=== PATIENT | male | born 1965 | race Caucasian/White ===

== ENCOUNTER 2016-10-22 15:24 | Emergency (ER) | payer BC ==
[~2016-10-22] VITALS: Ht 182.9 cm; Wt 93.0 kg
[2016-10-22 15:33] VITALS: BP 150/91
[2016-10-22] MEDS ORDERED: PLAQUENIL200 MG ORAL (15:42)
[2016-10-22] MEDS ORDERED: PAMELOR10 MG ORAL (15:42)
[2016-10-22] MEDS ORDERED: IMITREX25 MG PO (15:42)
[2016-10-22] MEDS ORDERED: SIMVASTATIN10 MG ORAL (15:42)
[2016-10-22] MEDS ORDERED: LEXAPRO5 MG ORAL (15:42)
[2016-10-22] MEDS ORDERED: METHOTREXATE2.5 MG PO (15:42)
[2016-10-22] MEDS ORDERED: LOSARTAN POTASS25 MG ORAL (15:42)
[2016-10-22] MEDS ORDERED: INDERAL LA60 MG ORAL (15:42)
[2016-10-22 16:30] LABS: EOSINOPHILS % (AUTO) 0.5 % (0.0-3.0); LYMPHOCYTES % (AUTO) 11.5 % (20.0-45.0); MEAN CORPUSCULAR HEMOGLOBIN 34.5 PG (27.0-31.0); MEAN CORPUSCULAR HGB CONC 37.2 G/DL (32.0-36.0); MEAN CORPUSCULAR VOLUME 93 FL (80-99); MEAN PLATELET VOLUME 7.5 FL (6.5-10.1); MONOCYTES % (AUTO) 8.1 % (1.0-10.0); PLATELET COUNT 180 K/UL (150-450); RED CELL DISTRIBUTION WIDTH 12.4 % (11.6-14.8)
[2016-10-22 16:37] LABS: APPEARANCE,URINE CLEAR; KETONES,URINE NEGATIVE (NEGATIVE); LEUKOCYTE ESTERASE ,URINE NEGATIVE (NEGATIVE); NITRITE,URINE NEGATIVE (NEGATIVE); PH,URINE 6.5 (4.5-8.0); PROTEIN,URINE NEGATIVE (NEGATIVE); UROBILINOGEN,URINE NORMAL MG/DL (0.0-1.0)
[2016-10-22 16:46] LABS: PROTHROMBIN TIME 10.7 SEC (9.30-11.50)
[2016-10-22 16:55] LABS: BACTERIA,URINE FEW /HPF; RBC,URINE 0-2 /HPF (0 - 0); WBC,URINE 0-2 /HPF (0 - 0)
[2016-10-22 17:05] LABS: CALCIUM 9.8 mg/dL (8.6-10.2); CREATININE 1.8 mg/dL (0.7-1.2); GLOMERULAR FILTRATION RATE 39.8 mL/min (>60); POTASSIUM 4.6 mEQ/L (3.4-4.9); TOTAL PROTEIN 6.5 g/dL (6.6-8.7)
[2016-10-22 17:25] LABS: BILIRUBIN,DIRECT 0.2 mg/dL (0.1-0.3)
[2016-10-22] MEDS ORDERED: Morphine Sulfate 4mg/ml Inj IVP ONE (19:00)
[2016-10-22 19:29] VITALS: BP 144/89
[2016-10-22] MEDS ORDERED: NORCO 5-325 TA1 EAC1 ORAL (20:28)
[2016-10-22 20:38] VITALS: BP 138/87
--- NOTE | 2016-10-23 10:30 | Diagnostic Imaging Report ---
Indication: Abdominal pain Technique: Continuous helical transaxial imaging of the abdomen and pelvis was obtained from the lung bases to the pubic symphysis. No intravenous contrast was administered. Coronal 2-D reformats were also obtained. Total Dose length Product (DLP): [address] Dose Index Volume (CTDIvol): 18.4, 0.5 mGy Comparison: none Findings: There is a moderate degree of right perinephric stranding and hydronephrosis secondary to a mid ureteral calculus measuring approximately 6 mm. Stranding extends into the anterior pararenal space down to the right hemipelvis. There are multiple nonobstructive stones within the left kidney measuring in the upper to 7-8 mm. There is cortical volume loss indicative of scarring in the left kidney especially in the lateral part of the kidney. Tiny gallstone noted. Solid organs in the anterior wall. Lung bases are clear. Small hiatal hernia is present. No evidence of bowel obstruction, free fluid or free air. Urinary bladder wall shows mild thickening. Impression: Evidence of acute right ureteral obstruction due to a 6 mm mid ureteral stone and hydronephrosis. Moderate perinephric and anterior pararenal inflammation. Multiple nonobstructive stones in the left kidney. Scarring of the left kidney noted. Normal appendix Thickening of the urinary bladder wall. Query cystitis. Tiny gallstone Small hiatal hernia [facility] has communicated the preliminary results to the Emergency Department. Their findings are largely concordant with this report. The CT scanner at [facility] is accredited by the [employer] and the scans are performed using dose optimization techniques as appropriate to a performed exam including Automatic Exposure control.
--- NOTE | 2016-10-25 12:21 | Emergency Room Report ---
History of Present Illness General Chief Complaint: Lower Back Pain or Injury Source: Patient Present Illness HPI The patient is a 51 yo M presenting for R back and R abdomen pain x 1 day. He states that this is a 6/10 sharp and intermittent pain which radiates from the right lower back to the right abdomen. No known provoking relieving factors. He also admits to feeling of nausea but denies vomiting. He states that he has never had a kidney stone in the past but this feels like it. He denies any other symptoms including fever, chills, dysuria, hematuria, diarrhea, constipation, CP, SOB Allergies: Coded Allergies: AMPICILLIN (Verified Allergy, Intermediate, 10/22/16) PENICILLINS (Verified Allergy, Intermediate, 10/22/16) Patient History Past Medical History: see triage record, HTN Pertinent Family History: none Nursing Documentation-PMH Hx Hypertension: Yes Review of Systems All Other Systems: negative except mentioned in HPI Physical Exam Vital Signs Date Time Temp Pulse Resp B/P (MAP) Pulse Ox O2 Delivery O2 Flow Rate FiO2 10/22/16 15:33 97.9 83 19 150/91 97 Room Air Sp02 EP Interpretation: reviewed, normal General Appearance: no apparent distress, alert, GCS 15, non-toxic Head: normocephalic, atraumatic Eyes: bilateral eye normal inspection, bilateral eye PERRL ENT: hearing grossly normal, normal pharynx, no angioedema, normal voice Neck: full range of motion, supple/symm/no masses Respiratory: chest non-tender, lungs clear, normal breath sounds, speaking full sentences Cardiovascular #1: regular rate, rhythm, no edema Gastrointestinal: normal bowel sounds, soft, non-distended, no guarding, no rebound, tenderness - TTP over the RUQ Rectal: deferred Genitourinary: CVA tenderness (R) Musculoskeletal: back normal, gait/station normal, normal range of motion, non- tender Neurologic: alert, oriented x3, responsive, motor strength/tone normal, sensory intact, speech normal Psychiatric: judgement/insight normal, memory normal, mood/affect normal, no suicidal/homicidal ideation Skin: normal color, no rash, warm/dry, well hydrated Lymphatic: no adenopathy Medical Decision Making PA Attestation Dr. Culver is my supervising physician. Patient management was discussed with my supervising physician Diagnostic Impression: Primary Impression: Likely Ureter Rupture Additional Impressions: Kidney stone Hydronephrosis Qualified Codes: N13.30 - Unspecified hydronephrosis Renal failure Qualified Codes: N17.9 - Acute kidney failure, unspecified ER Course The patient is a 51 yo M presenting for R back and R abdomen pain x 1 day DDx considered but not limited to: pyelonephritis, renal lithiasis, LENKA, hepatitis, appendicitis, gastroenteritis, among others PE: Afebrile. NAD There is R sided CVA tenderness with RUQ tenderness. Normal BS. Non distended. Labs show leukocytosis with L shift, renal failure. CT: Evidence of acute right ureteral obstruction due to a 6 mm mid ureteral stone and hydronephrosis. Moderate perinephric and anterior pararenal inflammation. The patient is given IV hydration, IV abx, and pain medications and feels better. He initially agrees to be admitted and then consulted a friend who is a urologist who stated he will see the patient in the morning. The patient states he wants to leave AMA and understands the risks associated with this including permanent organ damage and . Labs Test 10/22/16 16:12 10/22/16 16:19 Urine Color Pale yellow Urine Appearance Clear Urine pH 6.5 (4.5-8.0) Urine Specific [place] 1.005 (1.005-1.035) Urine Protein Negative (NEGATIVE) Urine Glucose (UA) Negative (NEGATIVE) Urine Ketones Negative (NEGATIVE) Urine Occult Blood 1+ (NEGATIVE) Urine Nitrite Negative (NEGATIVE) Urine Bilirubin Negative (NEGATIVE) Urine Urobilinogen Normal MG/DL (0.0-1.0) Urine Leukocyte Esterase Negative (NEGATIVE) Urine RBC 0-2 /HPF (0 - 0) Urine WBC 0-2 /HPF (0 - 0) Urine Squamous Epithelial Cells None /LPF (NONE/OCC) Urine Bacteria Few /HPF (NONE) White Blood Count 13.0 K/UL (4.8-10.8) Red Blood Count 4.50 M/UL (4.70-6.10) Hemoglobin 15.6 G/DL (14.2-18.0) Hematocrit 41.8 % (42.0-52.0) Mean Corpuscular Volume 93 FL (80-99) Mean Corpuscular Hemoglobin 34.5 PG (27.0-31.0) Mean Corpuscular Hemoglobin Concent 37.2 G/DL (32.0-36.0) Red Cell Distribution Width 12.4 % (11.6-14.8) Platelet Count 180 K/UL (150-450) Mean Platelet Volume 7.5 FL (6.5-10.1) Neutrophils (%) (Auto) 79.0 % (45.0-75.0) Lymphocytes (%) (Auto) 11.5 % (20.0-45.0) Monocytes (%) (Auto) 8.1 % (1.0-10.0) Eosinophils (%) (Auto) 0.5 % (0.0-3.0) Basophils (%) (Auto) 1.0 % (0.0-2.0) Prothrombin Time 10.7 SEC (9.30-11.50) Prothromb Time International Ratio 1.0 (0.9-1.1) Activated Partial Thromboplast Time 25 SEC (23-33) Sodium Level 135 mEQ/L (135-145) Potassium Level 4.6 mEQ/L (3.4-4.9) Chloride Level 97 mEQ/L (98-107) Carbon Dioxide Level 26 mEQ/L (20-30) Anion Gap 12 (5-15) Blood Urea Nitrogen 20 mg/dL (7-23) Creatinine 1.8 mg/dL (0.7-1.2) Estimat Glomerular Filtration Rate 39.8 mL/min (>60) Glucose Level 113 mg/dL (74-106) Calcium Level 9.8 mg/dL (8.6-10.2) Total Bilirubin 1.1 mg/dL (0.0-1.2) Direct Bilirubin 0.2 mg/dL (0.1-0.3) Aspartate Amino Transf (AST/SGOT) 44 U/L (5-40) Alanine Aminotransferase (ALT/SGPT) 52 U/L (3-41) Alkaline Phosphatase 56 U/L (40-129) Total Protein 6.5 g/dL (6.6-8.7) Albumin 4.4 g/dL (3.5-5.2) Globulin 2.1 g/dL Albumin/Globulin Ratio 2.0 (1.0-2.7) Lipase 28 U/L (< 60) Lab Results Impression CBC shows mild leukocytosis with L shift. CMP shows renal failure with Cr of 1.8 Urine has 1+ occult blood with 0-[address]/MRI/US Diagnostic Results CT/MRI/US Diagnostic Results : Imaging Test Ordered: CT abd/pelvis Impression Evidence of acute right ureteral obstruction due to a 6 mm mid ureteral stone and hydronephrosis. Moderate perinephric and anterior pararenal inflammation. Multiple nonobstructive stones in the left kidney. Scarring of the left kidney noted. Normal appendix Thickening of the urinary bladder wall. Query cystitis. Tiny gallstone Small hiatal hernia Last Vital Signs Date Time Temp Pulse Resp B/P (MAP) Pulse Ox O2 Delivery O2 Flow Rate FiO2 10/22/16 20:38 97.8 72 17 138/87 99 Room Air Status: improved Disposition: AGAINST MEDICAL ADVICE Condition: Stable Scripts Hydrocodone Bit/Acetaminophen 5-325* ([place] 5-325 TABLET*) 1 Each Tablet 1 TAB ORAL Q6HR Y for For Pain, #10 TAB Prov: KOFI KU 10/22/16 Patient Instructions: Hydronephrosis, Kidney Stones, Renal Colic Additional Instructions: You have chosen to leave AGAINST MEDICAL ADVICE. Have explained the risks of leaving including risk of organ damage, failure, and even . You stated you will followup with manager r d as soon as possible. Return to emergency Department if you change your mind or for any reason including fever, continuing or worsening pain, blood in urine KOFI KU Oct 25, 2016 12:21
== END 2016-10-22 20:38 | disposition left against medical advice (07) ==
LOC: EMR 16:03 → EDBEDREQ 20:17 → CANBEDREQ 20:18 → EMR 20:38
DX: N20.0 Calculus of kidney (principal); N13.30 Unspecified hydronephrosis; N17.9 Acute kidney failure, unspecified; I10 Essential (primary) hypertension; Z88.0 Allergy status to penicillin; M54.9 Dorsalgia, unspecified; D72.829 Elevated white blood cell count, unspecified; K44.9 Diaphragmatic hernia without obstruction or gangrene; K80.80 Other cholelithiasis without obstruction
CPT/HCPCS: 36415; 74176; 80053; 81003; 82248; 83690; 85025; 85610; 85730; 96361; 96374; 96375; 99284; J0696; J2270; J2405

== ENCOUNTER 2016-10-22 21:18 | Inpatient (IN) | payer BC ==
[~2016-10-22] VITALS: Ht 182.9 cm; Wt 93.0 kg
[~2016-10-22 21:18] MED LIST: IMITREX25 MG PO; INDERAL LA60 MG ORAL; LEXAPRO5 MG ORAL; LOSARTAN POTASS25 MG ORAL; METHOTREXATE2.5 MG PO; NORCO 5-325 TA1 EAC1 ORAL; PAMELOR10 MG ORAL; PLAQUENIL200 MG ORAL; SIMVASTATIN10 MG ORAL
[2016-10-22 21:30] VITALS: BP 145/90
[2016-10-22] MEDS ORDERED: cefTRIAXone 1 GM in NS 55 ML IVPB ONE (22:00)
--- NOTE | 2016-10-22 22:17 | Emergency Room Report ---
History of Present Illness General Chief Complaint: Abdominal Pain Source: Patient Present Illness HPI Is a 51-year-old male with no past medical history. Patient was here earlier for flank pain abdominal pain. He had acute renal failure with creatinine 1.8. CT scan showed a 5-6 mm stone in the right proximal ureter with mild obstructive changes. There was fluid adjacent to the right kidney and duodenum. This could be from a forniceal rupture. Patient signout AMA. He said that he has a urologist friend to see him in the morning. He was unable to contact that person so he came here. Denies any nausea vomiting. Pain is well-controlled. No other complaint. Allergies: Coded Allergies: AMPICILLIN (Verified Allergy, Intermediate, 10/22/16) PENICILLINS (Verified Allergy, Intermediate, 10/22/16) Patient History Past Medical History: see triage record, old chart reviewed Past Surgical History: other Pertinent Family History: none Social History: Denies: smoking Immunizations: other Reviewed Nursing Documentation: PMH: Agreed, PSxH: Agreed Nursing Documentation-PMH Hx Hypertension: Yes Review of Systems Eye: Denies: eye pain, blurred vision ENT: Denies: ear pain, nose congestion, throat swelling Respiratory: Denies: cough, shortness of breath Cardiovascular: Denies: chest pain, palpitations Gastrointestinal: Denies: abdominal pain, diarrhea, nausea, vomiting Genitourinary: Reports: other - Flank pain Musculoskeletal: Denies: back pain, joint pain Skin: Denies: rash Neurological: Denies: headache, numbness Endocrine: Denies: increased thirst, increased urine Hematologic/Lymphatic: Denies: easy bruising All Other Systems: negative except mentioned in HPI Physical Exam Vital Signs Date Time Temp Pulse Resp B/P (MAP) Pulse Ox O2 Delivery O2 Flow Rate FiO2 10/22/16 21:22 97.9 89 18 145/90 98 Room Air itals normal Sp02 EP Interpretation: reviewed, normal General Appearance: well appearing, no apparent distress, alert Head: normocephalic, atraumatic Eyes: bilateral eye PERRL, bilateral eye EOMI ENT: hearing grossly normal, normal pharynx Neck: full range of motion, supple, no meningismus Respiratory: chest non-tender, lungs clear, normal breath sounds Cardiovascular #1: regular rate, rhythm, no murmur Gastrointestinal: normal bowel sounds, non tender, no mass, no organomegaly, no bruit, non-distended Musculoskeletal: back normal, gait/station normal, normal range of motion Psychiatric: mood/affect normal Skin: warm/dry Medical Decision Making Diagnostic Impression: Primary Impression: Ureteral stone with hydronephrosis Additional Impression: Acute kidney failure Qualified Codes: N17.9 - Acute kidney failure, unspecified ER Course Patient with an obstructed kidney stone. Because of the possible rupture, will admit for IV antibiotics. Patient went to stay in now. I contacted Dr. Braun for admission. Apparently, Dr. Cary spoke with urologist already. Patient be seen in the morning by urologist. Last Vital Signs Date Time Temp Pulse Resp B/P (MAP) Pulse Ox O2 Delivery O2 Flow Rate FiO2 10/22/16 21:22 97.9 89 18 145/90 98 Room Air Status: improved Disposition: ADMITTED INPATIENT Condition: Serious SAUL BOTELLO M.D. Oct 22, 2016 22:17
[2016-10-22] MEDS ORDERED: Miralax 17gm pkt ORAL PRN (22:30)
[2016-10-22] MEDS ORDERED: Nitroglycerin Subl 0.4mg tab (Bottle Of 25) SL PRN (22:30)
[2016-10-22] MEDS ORDERED: Mylanta II UD 30ml ORAL PRN (22:30)
[2016-10-22 23:30] VITALS: BP 133/81
[2016-10-23] VITALS: BP 144/79
[2016-10-23] MEDS: Morphine Sulfate 2mg/ml Inj IVP PRN ×2 (00:42→08:38)
[2016-10-23] MEDS: D5 1/2NS 1,000 ML IV SCH ×4 (00:42→18:16)
[2016-10-23] MEDS: Aztreonam Inj 1 GM in NS 50 ML IVPB SCH ×4 (01:20→23:36)
[2016-10-23 04:00] VITALS: BP 122/72
[2016-10-23 05:12] LABS: APPEARANCE,URINE CLEAR; KETONES,URINE NEGATIVE (NEGATIVE); LEUKOCYTE ESTERASE ,URINE NEGATIVE (NEGATIVE); NITRITE,URINE NEGATIVE (NEGATIVE); PH,URINE 7 (4.5-8.0); PROTEIN,URINE NEGATIVE (NEGATIVE); UROBILINOGEN,URINE NORMAL MG/DL (0.0-1.0)
[2016-10-23 05:45] LABS: RBC,URINE 0 /HPF (0 - 0); WBC,URINE 0 /HPF (0 - 0)
[2016-10-23 06:32] LABS: BASOPHILS % (AUTO) 0.6 % (0.0-2.0); EOSINOPHILS % (AUTO) 0.6 % (0.0-3.0); LYMPHOCYTES % (AUTO) 8.8 % (20.0-45.0); MEAN CORPUSCULAR HEMOGLOBIN 34.5 PG (27.0-31.0); MEAN CORPUSCULAR HGB CONC 35.5 G/DL (32.0-36.0); MEAN CORPUSCULAR VOLUME 97 FL (80-99); MEAN PLATELET VOLUME 7.8 FL (6.5-10.1); MONOCYTES % (AUTO) 9.7 % (1.0-10.0); NEUTROPHILS % (AUTO) 80.3 % (45.0-75.0); PLATELET COUNT 132 K/UL (150-450); RED BLOOD COUNT 3.92 M/UL (4.70-6.10); RED CELL DISTRIBUTION WIDTH 12.5 % (11.6-14.8); WHITE BLOOD COUNT 10.9 K/UL (4.8-10.8)
[2016-10-23 06:49] LABS: ALBUMIN/GLOBULIN RATIO 1.9 (1.0-2.7); CALCIUM 8.7 mg/dL (8.6-10.2); CREATININE 1.8 mg/dL (0.7-1.2); GLOMERULAR FILTRATION RATE 39.8 mL/min (>60); POTASSIUM 4.4 mEQ/L (3.4-4.9); TOTAL PROTEIN 5.6 g/dL (6.6-8.7)
[2016-10-23 08:19] VITALS: BP 128/74
[2016-10-23] MEDS: Heparin 5000 units/ml inj SUBQ SCH ×2 (08:38→21:00)
[2016-10-23] MEDS ORDERED: D5 1/2NS 1000ml IV ONE (10:04)
[2016-10-23] MEDS ORDERED: Tubing IV Secondary IV ONE (10:04)
[2016-10-23 12:04] VITALS: BP 122/72
[2016-10-23] MEDS: Morphine Sulfate 4mg/ml Inj IV PRN ×2 (13:05→18:17)
[2016-10-23 16:08] VITALS: BP 117/67
--- NOTE | 2016-10-23 16:19 | History and Physical ---
History of Present Illness General Date patient seen: Oct 23, 2016 Reason for Hospitalization: Abdominal Pain Present Illness HPI 51 year old male with hx of migraine presented to [facility] with CC of flank pain. He was diagnosed to have urethral stone and admitted for further evaluation. No hx of previous nephrolithiasis Allergies: Coded Allergies: AMPICILLIN (Verified Allergy, Intermediate, 10/22/16) PENICILLINS (Verified Allergy, Intermediate, 10/22/16) Medication History Scheduled Escitalopram Oxalate (Lexapro), 5 MG ORAL DAILY, (Reported) Hydroxychloroquine Sulfate* (Plaquenil*), 200 MG ORAL DAILY, (Reported) Losartan Potassium* (Losartan Potassium*), 25 MG ORAL DAILY, (Reported) Methotrexate Sodium* (Methotrexate*), 2.5 MG PO ONCE A WEEK, (Reported) Nortriptyline Hcl* (Pamelor*), 10 MG ORAL DAILY, (Reported) Propranolol Hcl* (Inderal La*), 60 MG ORAL QPM, (Reported) Simvastatin (Zocor), 10 MG ORAL BEDTIME, (Reported) Scheduled PRN Hydrocodone Bit/Acetaminophen 5-325* ([place] 5-325 Tablet*), 1 TAB ORAL Q6HR PRN for For Pain Sumatriptan Succinate (Imitrex), 25 MG PO for For Pain, (Reported) Patient History Healthcare decision maker Resuscitation status Full Code Advanced Directive on File Past Medical/Surgical History Past Medical/Surgical History: (1) Migraine Review of Systems All Other Systems: negative except mentioned in HPI Physical Exam General Appearance: WD/WN Lines, tubes and drains: peripheral HEENT: normocephalic, atraumatic Neck: non-tender Respiratory/Chest: chest wall non-tender, lungs clear Breasts: no masses Cardiovascular/Chest: normal peripheral pulses Abdomen: normal bowel sounds, non tender Genitourinary/Rectal: normal rectal exam, normal prostate exam Extremities: non-tender Skin Exam: normal pigmentation 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 normal Last 24 Hour Vital Signs Date Time Temp Pulse Resp B/P (MAP) Pulse Ox O2 Delivery O2 Flow Rate FiO2 10/23/16 13:35 97.8 10/23/16 12:04 97.8 81 20 122/72 96 Room Air 10/23/16 09:08 98.2 10/23/16 08:19 98.2 77 20 128/74 96 Room Air 10/23/16 04:00 97.9 75 18 122/72 99 Room Air 10/23/16 00:00 96.8 80 18 144/79 97 Room Air 10/22/16 23:30 97.9 83 15 133/81 98 Room Air 10/22/16 23:30 97.9 83 15 133/81 98 Room Air 10/22/16 21:30 97.9 89 18 145/90 98 Room Air 10/22/16 21:22 97.9 89 18 145/90 98 Room Air Intake and Output 10/23/16 10/24/16 19:00 07:00 Intake Total 360 ml Output Total 400 ml Balance -40 ml Intake Oral 360 ml Output Urine Total 400 ml Laboratory Tests Test 10/23/16 03:30 10/23/16 05:50 Urine Color Yellow Urine Appearance Clear Urine pH 7 (4.5-8.0) Urine Specific [place] 1.010 (1.005-1.035) Urine Protein Negative (NEGATIVE) Urine Glucose (UA) Negative (NEGATIVE) Urine Ketones Negative (NEGATIVE) Urine Occult Blood Negative (NEGATIVE) Urine Nitrite Negative (NEGATIVE) Urine Bilirubin Negative (NEGATIVE) Urine Urobilinogen Normal MG/DL (0.0-1.0) Urine Leukocyte Esterase Negative (NEGATIVE) Urine RBC 0 /HPF (0 - 0) Urine WBC 0 /HPF (0 - 0) Urine Squamous Epithelial Cells None /LPF (NONE/OCC) Urine Bacteria None /HPF (NONE) White Blood Count 10.9 K/UL (4.8-10.8) H Red Blood Count 3.92 M/UL (4.70-6.10) L Hemoglobin 13.5 G/DL (14.2-18.0) L Hematocrit 38.1 % (42.0-52.0) L Mean Corpuscular Volume 97 FL (80-99) Mean Corpuscular Hemoglobin 34.5 PG (27.0-31.0) H Mean Corpuscular Hemoglobin Concent 35.5 G/DL (32.0-36.0) Red Cell Distribution Width 12.5 % (11.6-14.8) Platelet Count 132 K/UL (150-450) L Mean Platelet Volume 7.8 FL (6.5-10.1) Neutrophils (%) (Auto) 80.3 % (45.0-75.0) H Lymphocytes (%) (Auto) 8.8 % (20.0-45.0) L Monocytes (%) (Auto) 9.7 % (1.0-10.0) Eosinophils (%) (Auto) 0.6 % (0.0-3.0) Basophils (%) (Auto) 0.6 % (0.0-2.0) Activated Partial Thromboplast Time 28 SEC (23-33) Sodium Level 140 mEQ/L (135-145) Potassium Level 4.4 mEQ/L (3.4-4.9) Chloride Level 103 mEQ/L (98-107) Carbon Dioxide Level 27 mEQ/L (20-30) Anion Gap 10 (5-15) Blood Urea Nitrogen 19 mg/dL (7-23) Creatinine 1.8 mg/dL (0.7-1.2) H Estimat Glomerular Filtration Rate 39.8 mL/min (>60) Glucose Level 121 mg/dL (74-106) H Calcium Level 8.7 mg/dL (8.6-10.2) Total Bilirubin 0.9 mg/dL (0.0-1.2) Aspartate Amino Transf (AST/SGOT) 30 U/L (5-40) Alanine Aminotransferase (ALT/SGPT) 40 U/L (3-41) Alkaline Phosphatase 48 U/L (40-129) Total Protein 5.6 g/dL (6.6-8.7) L Albumin 3.7 g/dL (3.5-5.2) Globulin 1.9 g/dL Albumin/Globulin Ratio 1.9 (1.0-2.7) Amylase Level 110 U/L (10-110) Lipase 91 U/L (< 60) H Height (Feet): 6 Height (Inches): 0.00 Weight (Pounds): 205 Medications Current Medications Medications (Trade) Dose Ordered Sig/Vianney Route PRN Reason Start Time Stop Time Status Last Admin Dose Admin Acetaminophen (Tylenol) 650 mg Q4H PRN ORAL fever 10/22/16 22:30 11/21/16 22:29 Al Hydroxide/Mg Hydroxide (Mylanta II) 30 ml Q6H PRN ORAL dyspepsia 10/22/16 22:30 11/21/16 22:29 Aztreonam 1 gm/ Sodium Chloride 50 ml @ 100 mls/hr Q8H IVPB 10/23/16 00:00 10/30/16 00:00 10/23/16 16:00 Dextrose (Dextrose 50%) STAT PRN IV Hypoglycemia 10/22/16 22:30 11/21/16 22:29 Dextrose/Sodium Chloride 1,000 ml @ 75 mls/hr [id number] IV 10/23/16 00:00 11/22/16 00:00 10/23/16 16:01 Diphenhydramine HCl (Benadryl) 25 mg Q6H PRN ORAL Itching/Pruritis 10/22/16 22:30 11/21/16 22:29 Heparin Sodium (Porcine) (Heparin 5000 units/ml) 5,000 units EVERY 12 HOURS SUBQ 10/23/16 09:00 11/22/16 08:59 Morphine Sulfate (Morphine Sulfate) 2 mg Q4H PRN IVP severe Pain (Pain Scale 4-6) 10/22/16 22:30 10/29/16 22:29 10/23/16 08:38 Morphine Sulfate (Morphine Sulfate) 4 mg Q2H PRN IV For Pain (7-10) 10/22/16 22:30 10/29/16 22:29 10/23/16 13:05 Nitroglycerin (Ntg) 0.4 mg Q5M X 3 DOSES PRN SL Prn Chest Pain 10/22/16 22:30 11/21/16 22:29 Ondansetron HCl (Zofran) 4 mg Q6H PRN IVP Nausea & Vomiting 10/22/16 22:30 11/21/16 22:29 10/23/16 12:59 Polyethylene Glycol (Miralax) 17 gm HSPRN PRN ORAL Constipation 10/22/16 22:30 11/21/16 22:29 Temazepam (Restoril) 15 mg HSPRN PRN ORAL Insomnia 10/22/16 22:30 10/29/16 22:29 Assessment/Plan Problem List: (1) Ureteral stone with hydronephrosis ICD Codes: N13.2 - Hydronephrosis with renal and ureteral calculous obstruction SNOMED: 556153386 (2) Acute kidney failure ICD Codes: N17.9 - Acute kidney failure, unspecified SNOMED: 75992703 Qualifiers: Qualified Codes: N17.9 - Acute kidney failure, unspecified (3) Migraine ICD Codes: G43.909 - Migraine, unspecified, not intractable, without status migrainosus SNOMED: 78224944 Assessment/Plan iv fluids check electrolytes Urology evaluation symptomatic treatment. HUNTER CASTRO Oct 23, 2016 16:19
[2016-10-23 19:52] VITALS: BP 116/72
[2016-10-23 23:22] LABS: APPEARANCE,URINE CLEAR; KETONES,URINE NEGATIVE (NEGATIVE); LEUKOCYTE ESTERASE ,URINE NEGATIVE (NEGATIVE); NITRITE,URINE NEGATIVE (NEGATIVE); PH,URINE 6 (4.5-8.0); PROTEIN,URINE NEGATIVE (NEGATIVE); UROBILINOGEN,URINE NORMAL MG/DL (0.0-1.0)
[2016-10-24] VITALS (13 sets, daily range): BP systolic 115–148; BP diastolic 63–86
[2016-10-24] MEDS: D5 1/2NS 1,000 ML IV SCH ×2 (01:27→08:45)
[2016-10-24] MEDS: Morphine Sulfate 4mg/ml Inj IV PRN ×2 (01:27→04:43)
--- NOTE | 2016-10-24 02:32 | Consultation ---
DATE OF CONSULTATION: 10/23/2016 PREOPERATIVE DIAGNOSIS: Right ureteral stone. Indication: The patient was referred to me by Dr. Braun. He is a 51-year-old male with history of renal stones, presented to the emergency room last night and CT scan revealed proximal ureteral stone. The patient was admitted for observation and started on IV hydration. ALLERGIES: To ampicillin and penicillin. Past Medical History: He has history of hypertension and hypercholesterolemia. Medications: He is on medications, hydroxychloroquine, losartan, methotrexate, nortriptyline, propranolol, and simvastatin. Review Of Symptoms: He is complaining of mild nausea and very mild flank tenderness. No history of hematuria or melena. PHYSICAL EXAMINATION: GENERAL: He is afebrile. VITAL SIGNS: Stable. LUNGS: Clear to auscultation. CARDIOVASCULAR: Regular rate and rhythm. Abdomen: Soft, mildly tender in the right upper quadrant. Positive CVA tenderness on the right. EXTREMITIES: Nontender. SKIN: Exam is normal. NEUROLOGIC: Intact. Laboratory And Diagnostic Data: Showed no white cells and no red cells in the urine. White blood count is 10.9, hematocrit is 38.1. Creatinine is 1.8. CT scan was done yesterday showing a 5 mm proximal ureteral stone with mild hydronephrosis. Assessment And Plan: The patient has right renal colic with right ureteral stone. We gave him 12 hours to pass the stone, but so far, he is not improving and we scheduled him for procedure retrograde intrarenal surgery with possible ESWL tomorrow morning. He will be NPO post midnight with intravenous fluids. I will discuss this case with Dr. Braun. Antwon Harris M.D. DR: Bill JOB#: [id number] CC:
[2016-10-24] MEDS: Nortriptyline 10mg cap ORAL SCH (08:55)
[2016-10-24] MEDS: Escitalopram Oxalate 5mg tab ORAL SCH (08:55)
[2016-10-24] MEDS: Metoprolol Succinate XL 25mg tab ORAL SCH (08:57)
[2016-10-24] MEDS: Heparin 5000 units/ml inj SUBQ SCH ×2 (09:00→21:00)
[2016-10-24] MEDS: Aztreonam Inj 1 GM in NS 50 ML IVPB SCH (09:28)
[2016-10-24] MEDS ORDERED: Vancomycin 1gm inj IVPB ONE (10:05)
--- NOTE | 2016-10-24 10:36 | Pre-Procedure Note/Attestation ---
Pre-Procedure Note/Attestation Complete Prior to Procedure Planned Procedure: right Procedure Narrative: RIRS eswl right stent placement Indications for Procedure Pre-Operative Diagnosis: right ureteral stone Attestation I attest that I discussed the nature of the procedure; its benefits; risks and complications; and alternatives (and the risks and benefits of such alternatives ), prior to the procedure, with the patient (or the patient's legal sales representative groceries). I attest that, if there was a reasonable possibility of needing a blood transfusion, the patient (or the patient's legal sales representative groceries) was given the [facility] standardized written summary, pursuant to the [place] Blood Safety Act ([place] Health and Safety Code # 1645, as amended). I attest that I re-evaluated the patient just prior to the surgery and that there has been no change in the patient's H&P, except as documented below: Antwon Harris MD Oct 24, 2016 10:36
[2016-10-24] MEDS ORDERED: Iothalamate Meglumine 60% 30ML INJ ONE (10:51)
[2016-10-24] MEDS ORDERED: LR 1000ml ONE (11:00)
[2016-10-24] MEDS ORDERED: NS Irrig 2000ml IRRIG ONE ×2 (11:00→11:32)
[2016-10-24] MEDS ORDERED: fentaNYL 100 mcg/2 mL IV ONE (11:00)
[2016-10-24] MEDS ORDERED: Midazolam 2mg/2ml Inj ONE (11:00)
[2016-10-24] MEDS ORDERED: Lidocaine 1% MPF 10mg/ml 5ml ONE (11:00)
[2016-10-24] MEDS ORDERED: Sterile Water Irrig 1000ml IRRIG ONE ×2 (11:00→11:32)
[2016-10-24] MEDS ORDERED: Propofol 200mg/20ml IV ONE (11:07)
--- NOTE | 2016-10-24 11:27 | Consultation ---
Consult Note Consult Note asked to eval for renal failure- 51-year-old male with history of renal stones, presented to the emergency room last night and CT scan revealed proximal ureteral stone. The patient was admitted for observation and started on IV hydration. ALLERGIES: To ampicillin and penicillin. Interviewed and examined today prior to Uro procedure Escitalopram Oxalate (Lexapro), 5 MG ORAL DAILY, (Reported) Hydroxychloroquine Sulfate* (Plaquenil*), 200 MG ORAL DAILY, (Reported) Losartan Potassium* (Losartan Potassium*), 25 MG ORAL DAILY, (Reported) Methotrexate Sodium* (Methotrexate*), 2.5 MG PO ONCE A WEEK, (Reported) Nortriptyline Hcl* (Pamelor*), 10 MG ORAL DAILY, (Reported) Propranolol Hcl* (Inderal La*), 60 MG ORAL QPM, (Reported) Simvastatin (Zocor), 10 MG ORAL BEDTIME, (Reported) PH RA HTN Migrane Depression High Cholestrol Assessment/Plan Imp: Renal failure , Cr 1.8- Normal UA Evidence of acute right ureteral obstruction due to a 6 mm mid ureteral stone and hydronephrosis. Moderate perinephric and anterior pararenal inflammation. Multiple nonobstructive stones in the left kidney. Scarring of the left kidney noted. Plan; Post Up : Hydrate monitor renal parameters Keep BP in check check Uric Acid and CRP IQRA LARA Oct 24, 2016 11:27
[2016-10-24] MEDS ORDERED: NS Irrig 1000ml IRRIG ONE (11:32)
[2016-10-24] MEDS ORDERED: LR 1000ml 1,000 ML IVLG SCH (11:58)
--- NOTE | 2016-10-24 11:58 | Anethesia Preoperative Eval ---
Anesthesia Pre-op PMH/ROS General Date of Evaluation: Oct 24, 2016 Time of Evaluation: 11:04 Anesthesiologist: Dinorah ASA Score: ASA 2 Mallampati Score Class I : Soft palate, uvula, fauces, pillars visible Class II: Soft palate, uvula, fauces visible Class III: Soft palate, base of uvula visible Class IV: Only hard plate visible Mallampati Classification: Class II Surgeon: Kimberly Diagnosis: R kidney stone Surgical Procedure: Cysto laser lithotrypsy Anesthesia History: none Family History: no anesthesia problems Allergies: Coded Allergies: AMPICILLIN (Verified Allergy, Intermediate, 10/22/16) PENICILLINS (Verified Allergy, Intermediate, 10/22/16) Medications: see eMAR Past Medical History Cardiovascular: Reports: HTN - mild, Denies: CAD, [place], valve dz, arrhythmia, other Pulmonary: Denies: asthma, COPD, STACY, other Gastrointestinal/Genitourinary: Reports: GERD, Denies: CRI, ESRD, other Neurologic/Psychiatric: Reports: depression/anxiety, other - migrane Endocrine: Denies: DM, hypothyroidism, steroids, other HEENT: Denies: cataract (L), cataract (R), glaucoma, AKIAK (L), AKIAK (R), other Hematology/Immune: Denies: anemia, DVT, bleeding disorder, other Musculoskeletal/Integumentary: Denies: OA, RA, DJD, DDD, edema, other Other: other - overweight PMH Narrative: as above, admitted for acute abdominal pain PSxH Narrative: Podiatry Anesthesia Pre-op Phys. Exam Physician Exam Last Vital Signs Date Time Temp Pulse Resp B/P (MAP) Pulse Ox O2 Delivery O2 Flow Rate FiO2 10/24/16 08:57 75 116/63 10/24/16 08:00 97.3 18 95 Room Air Constitutional: NAD Neurologic: CN 2-12 intact Cardiovascular: RRR, no M/R/G Respiratory: CTA Gastrointestinal: S/NT/ND Airway Exam Mallampati Score: Class II MO: limited Neck: stiff ROM: limited Teeth: intact Dentures: no upper, no lower Anesthesia Pre-op A/P Labs see chart Studies Pre-op Studies: EKG Risk Assessment & Plan Assessment: ASA 2 Plan: GA with LMA Status Change Before Surgery: No Pre-Antibiotics Drug: Vanco 1gr. Given Within 1 Hr of Incision: Yes Time Given: 11:54 JOSEPH TADEO M.D. Oct 24, 2016 11:58
[2016-10-24] MEDS ORDERED: Midazolam 2mg/2ml Inj IVP PRN (12:00)
[2016-10-24] MEDS ORDERED: DiphenhydrAMINE 50mg/ml Inj IVP PRN (12:00)
[2016-10-24] MEDS ORDERED: Hydromorphone 0.5mg/0.5ml inj IVP PRN (12:00)
[2016-10-24] MEDS ORDERED: Metoclopramide 10mg/2ml Inj IVP PRN (12:00)
[2016-10-24] MEDS ORDERED: Norco 5mg/325mg tab ORAL PRN (12:45)
[2016-10-24] MEDS ORDERED: HYDROmorphone 1mg/ml Carpuject IVP PRN (12:45)
--- NOTE | 2016-10-24 12:48 | Brief Operative Note ---
Immediate Post Operative Note Operative Note Pre-op Diagnosis: right ureteral stone Procedure: ESWL RIRS Right, Stent placement right ureter Post-op Diagnosis: same Post-op Diagnosis: same as pre-op Surgeon: Billy harris Anesthesia: general Specimen: yes Complications: none Condition: stable Fluids: 1000 Estimated Blood Loss: minimal Implant(s) used?: No Antwon Harris MD Oct 24, 2016 12:47
[2016-10-24] MEDS: Meperidine 25mg/0.5ml Inj (FOR RIGORS ONLY) IV PRN ×2 (13:10→14:55)
--- NOTE | 2016-10-24 14:23 | Immediate Post-Op Evaluation ---
Immediate Post-Op Evalulation Immediate Post-Op Evalulation Procedure: Cysto ECSW lithotrypsy Date of Evaluation: Oct 24, 2016 Time of Evaluation: 12:50 IV Fluids: 600 Blood Products: none Estimated Blood Loss: 50 Urinary Output: n/a Blood Pressure Systolic: 135 Blood Pressure Diastolic: 64 Pulse Rate: 72 Respiratory Rate: 20 O2 Sat by Pulse Oximetry: 98 Temperature (Fahrenheit): 97.6 Pain Score (1-10): 2 Nausea: No Vomiting: No Complications none Patient Status: reacts, patent, none Hydration Status: adequate JOSEPH TADEO M.D. Oct 24, 2016 14:23
[2016-10-24 14:35] LABS: MEAN CORPUSCULAR HEMOGLOBIN 32.3 PG (27.0-31.0); MEAN CORPUSCULAR HGB CONC 33.5 G/DL (32.0-36.0); MEAN CORPUSCULAR VOLUME 97 FL (80-99); MEAN PLATELET VOLUME 7.7 FL (6.5-10.1); PLATELET COUNT 141 K/UL (150-450); RED BLOOD COUNT 4.28 M/UL (4.70-6.10); RED CELL DISTRIBUTION WIDTH 11.9 % (11.6-14.8); WHITE BLOOD COUNT 12.5 K/UL (4.8-10.8)
[2016-10-24 14:52] LABS: BAND NEUTROPHILS % (MANUAL) 0 % (0-8); BASOPHILS % (MANUAL) 0 % (0-2); CALCIUM 8.2 mg/dL (8.6-10.2); CREATININE 1.4 mg/dL (0.7-1.2); EOSINOPHILS % (MANUAL) 0 % (0-3); GLOMERULAR FILTRATION RATE 53.2 mL/min (>60); LYMPHOCYTES % (MANUAL) 6 % (20-45); NEUTROPHILS % (MANUAL) 89 % (45-75); PLATELET ESTIMATE DECREASED; PLATELET MORPHOLOGY NORMAL; POTASSIUM 4.3 mEQ/L (3.4-4.9); TOTAL CELLS COUNTED 100
[2016-10-24] MEDS ORDERED: SUMAtriptan 50mg tab ORAL PRN (16:00)
[2016-10-24] MEDS: D5 1/2NS w/KCl 20mEq 1,000 ML IV SCH (16:43)
[2016-10-24] MEDS: Docusate 100mg cap ORAL SCH (17:08)
[2016-10-24] MEDS: SUMAtriptan 6mg/0.5ml Inj SUBQ PRN (17:36)
--- NOTE | 2016-10-24 19:06 | Pulmonology Progress Note ---
Assessment/Plan Problems: (1) Ureteral stone with hydronephrosis (2) Acute kidney failure (3) Migraine Assessment/Plan iv fluids check renal function continue abx Subjective ROS Limited/Unobtainable: No Interval Events: tolerated surgery very well Allergies: Coded Allergies: AMPICILLIN (Verified Allergy, Intermediate, 10/22/16) PENICILLINS (Verified Allergy, Intermediate, 10/22/16) Objective Last 24 Hour Vital Signs Date Time Temp Pulse Resp B/P (MAP) Pulse Ox O2 Delivery O2 Flow Rate FiO2 10/24/16 16:00 96.8 95 19 148/86 99 Room Air 10/24/16 15:03 15 138/68 98 Nasal Cannula 10/24/16 14:23 72 20 98 10/24/16 14:10 98.0 74 13 124/68 99 Nasal Cannula 3.0 10/24/16 13:55 75 13 125/66 99 Nasal Cannula 3.0 10/24/16 13:40 71 14 115/69 99 Nasal Cannula 3.0 10/24/16 13:40 97.6 10/24/16 13:25 71 13 122/66 99 Nasal Cannula 3.0 10/24/16 13:10 77 12 130/70 99 Nasal Cannula 3.0 10/24/16 12:55 83 18 143/71 100 Nasal Cannula 3.0 10/24/16 12:50 77 16 130/70 100 Simple Mask 6.0 10/24/16 12:46 97.8 78 14 134/74 100 Simple Mask 6.0 10/24/16 08:57 75 116/63 10/24/16 08:00 97.3 75 18 138/80 95 Room Air 10/24/16 00:00 98.2 75 21 116/63 97 Room Air 10/23/16 19:52 97.9 78 18 116/72 96 Room Air Intake and Output 10/24/16 10/25/16 19:00 07:00 Intake Total 900 ml Output Total 2250 ml Balance -1350 ml IV Total 900 ml Output Urine Total 2200 ml Estimated Blood Loss 50 ml General Appearance: WD/WN HEENT: normocephalic, atraumatic Respiratory/Chest: chest wall non-tender, lungs clear Cardiovascular: normal peripheral pulses, normal rate Abdomen: normal bowel sounds, soft, non tender Extremities: no cyanosis Skin: no lesions Neurologic/Psychiatric: 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 development educator II-XII grossly normal Microbiology Date/Time Source Procedure Growth Status 10/23/16 03:30 Urine,Clean Catch Urine Culture - Preliminary NO GROWTH AFTER 24 HOURS Resulted Laboratory Tests 10/23/16 21:30: Urine Color Pale yellow, Urine Appearance Clear, Urine pH 6, Urine Specific [place] 1.010, Urine Protein Negative, Urine Glucose (UA) Negative, Urine Ketones Negative, Urine Occult Blood 2+H, Urine Nitrite Negative, Urine Bilirubin Negative, Urine Urobilinogen Normal, Urine Leukocyte Esterase Negative , Urine RBC 2-4H, Urine WBC 2-4, Urine Squamous Epithelial Cells None, Urine Bacteria None, Urine Eosinophils None seen, Urine Random Sodium 58, Urine Potassium Timed 32 10/24/16 14:20: White Blood Count 12.5H, Red Blood Count 4.28L, Hemoglobin 13.8L, Hematocrit 41.3L, Mean Corpuscular Volume 97, Mean Corpuscular Hemoglobin 32.3H, Mean Corpuscular Hemoglobin Concent 33.5, Red Cell Distribution Width 11.9, Platelet Count 141L, Mean Platelet Volume 7.7, Neutrophils (%) (Auto) , Lymphocytes (%) ( Auto) , Monocytes (%) (Auto) , Eosinophils (%) (Auto) , Basophils (%) (Auto) , Differential Total Cells Counted 100, Neutrophils % (Manual) 89H, Lymphocytes % (Manual) 6L, Monocytes % (Manual) 5, Eosinophils % (Manual) 0, Basophils % ( Manual) 0, Band Neutrophils 0, Platelet Estimate DecreasedL, Platelet Morphology Normal, Sodium Level 137, Potassium Level 4.3, Chloride Level 98, Carbon Dioxide Level 28, Anion Gap 11, Blood Urea Nitrogen 14, Creatinine 1.4H, Estimat Glomerular Filtration Rate 53.2, Glucose Level 124H, Calcium Level 8.2L Current Medications Medications (Trade) Dose Ordered Sig/Vianney Route PRN Reason Start Time Stop Time Status Last Admin Dose Admin Acetaminophen (Tylenol) 650 mg Q4H PRN ORAL FEVER 10/24/16 12:45 11/23/16 12:44 Acetaminophen (Tylenol) 650 mg Q6H PRN ORAL Mild Pain (Pain Scale 1-3) 10/24/16 12:45 11/23/16 12:44 Acetaminophen/ Hydrocodone Bitart ([place] 5/325) 1 tab Q4H PRN ORAL Moderate Pain (Pain Scale 4-6) 10/24/16 12:45 10/31/16 12:44 Al Hydroxide/Mg Hydroxide (Mylanta II) 30 ml Q6H PRN ORAL dyspepsia 10/22/16 22:30 11/21/16 22:29 Ciprofloxacin (Cipro 500mg tab) 500 mg EVERY 12 HOURS ORAL 10/24/16 21:00 10/31/16 20:59 Dextrose (Dextrose 50%) STAT PRN IV Hypoglycemia 10/22/16 22:30 11/21/16 22:29 Dextrose/ Electrolytes 1,000 ml @ 125 mls/hr Q8H IV 10/24/16 16:15 11/23/16 16:14 10/24/16 16:43 Diphenhydramine HCl (Benadryl) 25 mg Q6H PRN ORAL Itching/Pruritis 10/22/16 22:30 11/21/16 22:29 Docusate Sodium (Colace) 100 mg TWICE A DAY ORAL 10/24/16 18:00 11/23/16 17:59 10/24/16 17:08 Escitalopram Oxalate (Lexapro) 5 mg DAILY ORAL 10/24/16 09:00 11/23/16 08:59 10/24/16 08:55 Heparin Sodium (Porcine) (Heparin 5000 units/ml) 5,000 units EVERY 12 HOURS SUBQ 10/23/16 09:00 11/22/16 08:59 Hydromorphone HCl (Dilaudid) 1 mg Q3H PRN IVP pain score 4-6 10/24/16 12:45 10/31/16 12:44 Metoprolol Succinate (Toprol XL) 25 mg DAILY ORAL 10/24/16 09:00 11/23/16 08:59 10/24/16 08:57 Nitroglycerin (Ntg) 0.4 mg Q5M X 3 DOSES PRN SL Prn Chest Pain 10/22/16 22:30 11/21/16 22:29 Nortriptyline HCl (Pamelor) 10 mg DAILY ORAL 10/24/16 09:00 11/23/16 08:59 10/24/16 08:55 Ondansetron HCl (Zofran) 4 mg Q4H PRN IVP Nausea & Vomiting 10/23/16 18:45 11/22/16 18:44 10/24/16 08:55 Polyethylene Glycol (Miralax) 17 gm HSPRN PRN ORAL Constipation 10/22/16 22:30 11/21/16 22:29 Sumatriptan Succinate (Imitrex) 6 mg Q6H PRN SUBQ MIGRAINE 10/24/16 17:00 11/23/16 16:59 10/24/16 17:36 Temazepam (Restoril) 7.5 mg DAILYPRN PRN ORAL Insomnia 10/24/16 12:45 10/31/16 12:44 HUNTER CASTRO Oct 24, 2016 19:06
[2016-10-24] MEDS: Ciprofloxacin 500mg tab ORAL SCH (21:21)
[2016-10-25] MEDS: D5 1/2NS w/KCl 20mEq 1,000 ML IV SCH (00:15)
[2016-10-25] MEDS: SUMAtriptan 6mg/0.5ml Inj SUBQ PRN (04:34)
[2016-10-25 07:49] LABS: ALANINE AMINOTRANSFERASE 26 U/L (3-41); ALBUMIN/GLOBULIN RATIO 1.5 (1.0-2.7); ANION GAP 10 (5-15); ASPARTATE AMINO TRANSFERASE 19 U/L (5-40); CALCIUM 8.5 mg/dL (8.6-10.2); CARBON DIOXIDE 28 mEQ/L (20-30); CHLORIDE 101 mEQ/L (98-107); CHOLESTEROL 127 mg/dL (< 200); CREATININE 1.1 mg/dL (0.7-1.2); GLOMERULAR FILTRATION RATE > 60 mL/min (>60); HEMOLYSIS 4; LDL CHOLESTEROL (CALC.) 51 mg/dL (60-99); MAGNESIUM 1.9 mg/dL (1.7-2.5); PHOSPHORUS 1.8 mg/dL (2.5-4.8); POTASSIUM 3.9 mEQ/L (3.4-4.9); SODIUM 139 mEQ/L (135-145); TOTAL PROTEIN 5.7 g/dL (6.6-8.7); URIC ACID 3.7 mg/dL (3.0-7.5)
[2016-10-25 07:57] LABS: BASOPHILS % (AUTO) 0.3 % (0.0-2.0); EOSINOPHILS % (AUTO) 0.7 % (0.0-3.0); LYMPHOCYTES % (AUTO) 8.3 % (20.0-45.0); MEAN CORPUSCULAR HEMOGLOBIN 33.2 PG (27.0-31.0); MEAN CORPUSCULAR HGB CONC 34.1 G/DL (32.0-36.0); MEAN CORPUSCULAR VOLUME 97 FL (80-99); MEAN PLATELET VOLUME 7.3 FL (6.5-10.1); MONOCYTES % (AUTO) 7.5 % (1.0-10.0); NEUTROPHILS % (AUTO) 83.2 % (45.0-75.0); PLATELET COUNT 136 K/UL (150-450); RED BLOOD COUNT 4.09 M/UL (4.70-6.10); RED CELL DISTRIBUTION WIDTH 12.1 % (11.6-14.8); WHITE BLOOD COUNT 9.8 K/UL (4.8-10.8)
[2016-10-25 08:02] LABS: THYROID STIMULATING HORMONE 0.348 uIU/mL (0.300-4.500)
[2016-10-25 08:11] VITALS: BP 140/82
--- NOTE | 2016-10-25 08:20 | 48 Hour Post Anesthesia Eval ---
Post Anesthesia Evaluation Procedure: Cysto ECSW lithotrypsy Date of Evaluation: Oct 25, 2016 Time of Evaluation: 08:19 Blood Pressure Systolic: 142 0: 67 Pulse Rate: 68 Respiratory Rate: 20 Temperature (Fahrenheit): 97.6 O2 Sat by Pulse Oximetry: 98 Airway: patent Nausea: No Vomiting: No Pain Intensity: 3 Hydration Status: adequate Cardiopulmonary Status: stable Mental Status/LOC: patient returned to baseline Follow-up Care/Observations: n/a Post-Anesthesia Complications: none Follow-up care needed: N/A JOSEPH TADEO M.D. Oct 25, 2016 08:20
[2016-10-25 08:29] LABS: HEMOGLOBIN A1C 4.9 % (< 6.0)
[2016-10-25] MEDS: Heparin 5000 units/ml inj SUBQ SCH (09:00)
[2016-10-25] MEDS ORDERED: Potassium Phosphate 20 MM in NS 275 ML IV ONE (09:30)
--- NOTE | 2016-10-25 09:45 | General Progress Note ---
Assessment/Plan Status: stable - from renal stand Status Narrative mitchell bag , bloody Assessment/Plan s/p Right Ureteral stent Renal failure , Cr 1.8- Normal UA on admission, Now Cr normal RA HYN Migrane Depression High Cholestrol Evidence of acute right ureteral obstruction due to a 6 mm mid ureteral stone and hydronephrosis. Moderate perinephric and anterior pararenal inflammation. Multiple nonobstructive stones in the left kidney. Scarring of the left kidney noted. Plan; Post Up : Hydrate monitor renal parameters Keep BP in check on Cipro Subjective ROS Limited/Unobtainable: No Constitutional: Reports: malaise Allergies: Coded Allergies: AMPICILLIN (Verified Allergy, Intermediate, 10/22/16) PENICILLINS (Verified Allergy, Intermediate, 10/22/16) Objective Last 24 Hour Vital Signs Date Time Temp Pulse Resp B/P (MAP) Pulse Ox O2 Delivery O2 Flow Rate FiO2 10/25/16 08:20 68 20 98 10/25/16 08:11 97.8 18 140/82 96 Room Air 10/25/16 04:10 97.8 10/24/16 20:28 97.8 91 18 142/84 96 Room Air 10/24/16 16:00 96.8 95 19 148/86 99 Room Air 10/24/16 15:03 15 138/68 98 Nasal Cannula 10/24/16 14:23 72 20 98 10/24/16 14:10 98.0 74 13 124/68 99 Nasal Cannula 3.0 10/24/16 13:55 75 13 125/66 99 Nasal Cannula 3.0 10/24/16 13:40 71 14 115/69 99 Nasal Cannula 3.0 10/24/16 13:40 97.6 10/24/16 13:25 71 13 122/66 99 Nasal Cannula 3.0 10/24/16 13:10 77 12 130/70 99 Nasal Cannula 3.0 10/24/16 12:55 83 18 143/71 100 Nasal Cannula 3.0 10/24/16 12:50 77 16 130/70 100 Simple Mask 6.0 10/24/16 12:46 97.8 78 14 134/74 100 Simple Mask 6.0 Laboratory Tests 10/24/16 14:20: White Blood Count 12.5H, Red Blood Count 4.28L, Hemoglobin 13.8L, Hematocrit 41.3L, Mean Corpuscular Volume 97, Mean Corpuscular Hemoglobin 32.3H, Mean Corpuscular Hemoglobin Concent 33.5, Red Cell Distribution Width 11.9, Platelet Count 141L, Mean Platelet Volume 7.7, Neutrophils (%) (Auto) , Lymphocytes (%) ( Auto) , Monocytes (%) (Auto) , Eosinophils (%) (Auto) , Basophils (%) (Auto) , Differential Total Cells Counted 100, Neutrophils % (Manual) 89H, Lymphocytes % (Manual) 6L, Monocytes % (Manual) 5, Eosinophils % (Manual) 0, Basophils % ( Manual) 0, Band Neutrophils 0, Platelet Estimate DecreasedL, Platelet Morphology Normal, Sodium Level 137, Potassium Level 4.3, Chloride Level 98, Carbon Dioxide Level 28, Anion Gap 11, Blood Urea Nitrogen 14, Creatinine 1.4H, Estimat Glomerular Filtration Rate 53.2, Glucose Level 124H, Calcium Level 8.2L 10/25/16 05:45: White Blood Count 9.8, Red Blood Count 4.09L, Hemoglobin 13.6L, Hematocrit 39.8L , Mean Corpuscular Volume 97, Mean Corpuscular Hemoglobin 33.2H, Mean Corpuscular Hemoglobin Concent 34.1, Red Cell Distribution Width 12.1, Platelet Count 136L, Mean Platelet Volume 7.3, Neutrophils (%) (Auto) 83.2H, Lymphocytes (%) (Auto) 8.3L, Monocytes (%) (Auto) 7.5, Eosinophils (%) (Auto) 0.7, Basophils (%) (Auto) 0.3, Sodium Level 139, Potassium Level 3.9, Chloride Level 101, Carbon Dioxide Level 28, Anion Gap 10, Blood Urea Nitrogen 10, Creatinine 1.1, Estimat Glomerular Filtration Rate > 60, Glucose Level 116H, Calcium Level 8.5L, Erythrocyte Sedimentation Rate 33H, Hemoglobin A1c 4.9, Uric Acid 3.7, Phosphorus Level 1.8L, Magnesium Level 1.9, Total Bilirubin 0.6, Gamma Glutamyl Transpeptidase 15, Aspartate Amino Transf (AST/SGOT) 19, Alanine Aminotransferase (ALT/SGPT) 26, Alkaline Phosphatase 49, Total Creatine Kinase 61, C-Reactive Protein, Quantitative 7.0H, Total Protein 5.7L, Albumin 3.5, Globulin 2.2, Albumin/Globulin Ratio 1.5, Triglycerides Level 64, Cholesterol Level 127, LDL Cholesterol 51L, HDL Cholesterol 63H, Cholesterol/HDL Ratio 2.0L , Vitamin B12 Level 692, Folate [Pending], Thyroid Stimulating Hormone (TSH) 0.348 Height (Feet): 6 Height (Inches): 0.00 Weight (Pounds): 205 General Appearance: no apparent distress Cardiovascular: normal rate Respiratory/Chest: lungs clear Abdomen: soft IQRA LARA Oct 25, 2016 09:45
[2016-10-25] MEDS: Metoprolol Succinate XL 25mg tab ORAL SCH (10:23)
[2016-10-25] MEDS: Nortriptyline 10mg cap ORAL SCH (10:23)
[2016-10-25] MEDS: Docusate 100mg cap ORAL SCH ×2 (10:23→17:38)
[2016-10-25] MEDS: Ciprofloxacin 500mg tab ORAL SCH (10:23)
[2016-10-25] MEDS: Escitalopram Oxalate 5mg tab ORAL SCH (10:42)
[2016-10-25 12:00] VITALS: BP 154/91
[2016-10-25 16:00] VITALS: BP 154/97
[2016-10-25] MEDS ORDERED: ACETAMINOPHEN-1 EAC1 ORAL (16:00)
[2016-10-25] MEDS ORDERED: LEVOFLOXACIN250 MG ORAL (16:00)
[2016-10-25] MEDS ORDERED: D5 1/2NS w/KCl 20mEq 1,000 ML IV SCH (16:15)
[2016-10-25] MEDS ORDERED: Tubing IV Secondary IV ONE (18:14)
[2016-10-25] MEDS ORDERED: D5 1/2NS 1000ml IV ONE (18:14)
--- NOTE | 2016-10-25 19:09 | Pulmonology Progress Note ---
Assessment/Plan Problems: (1) Ureteral stone with hydronephrosis (2) Acute kidney failure (3) Migraine Assessment/Plan iv fluids check renal function, improving continue abx, po dc home with /fu with dr Harris Subjective ROS Limited/Unobtainable: No Constitutional: Reports: no symptoms HEENT: Repors: no symptoms Respiratory: Reports: no symptoms Allergies: Coded Allergies: AMPICILLIN (Verified Allergy, Intermediate, 10/22/16) PENICILLINS (Verified Allergy, Intermediate, 10/22/16) Objective Last 24 Hour Vital Signs Date Time Temp Pulse Resp B/P (MAP) Pulse Ox O2 Delivery O2 Flow Rate FiO2 10/25/16 16:00 98.7 84 18 154/97 98 Room Air 10/25/16 12:00 94.5 18 154/91 96 Room Air 10/25/16 10:23 68 142/67 10/25/16 08:20 68 20 98 10/25/16 08:11 97.8 18 140/82 96 Room Air 10/25/16 04:10 97.8 10/24/16 20:28 97.8 91 18 142/84 96 Room Air Intake and Output 10/25/16 10/26/16 19:00 07:00 Intake Total 328.608 ml Output Total 2850 ml Balance -2521.392 ml IV Total 328.608 ml Output Urine Total 2850 ml General Appearance: WD/WN HEENT: normocephalic, atraumatic Respiratory/Chest: chest wall non-tender, lungs clear Cardiovascular: normal peripheral pulses, normal rate Abdomen: normal bowel sounds, soft, non tender Genitourinary: normal external genitalia Extremities: no cyanosis Skin: no rash Neurologic/Psychiatric: hand compositor II-XII grossly normal, no motor/sensory deficits Microbiology Date/Time Source Procedure Growth Status 10/23/16 03:30 Urine,Clean Catch Urine Culture - Final NO GROWTH AFTER 48 HOURS Complete Laboratory Tests 10/25/16 05:45: White Blood Count 9.8, Red Blood Count 4.09L, Hemoglobin 13.6L, Hematocrit 39.8L , Mean Corpuscular Volume 97, Mean Corpuscular Hemoglobin 33.2H, Mean Corpuscular Hemoglobin Concent 34.1, Red Cell Distribution Width 12.1, Platelet Count 136L, Mean Platelet Volume 7.3, Neutrophils (%) (Auto) 83.2H, Lymphocytes (%) (Auto) 8.3L, Monocytes (%) (Auto) 7.5, Eosinophils (%) (Auto) 0.7, Basophils (%) (Auto) 0.3, Erythrocyte Sedimentation Rate 33H, Sodium Level 139, Potassium Level 3.9, Chloride Level 101, Carbon Dioxide Level 28, Anion Gap 10, Blood Urea Nitrogen 10, Creatinine 1.1, Estimat Glomerular Filtration Rate > 60 , Glucose Level 116H, Hemoglobin A1c 4.9, Uric Acid 3.7, Calcium Level 8.5L, Phosphorus Level 1.8L, Magnesium Level 1.9, Total Bilirubin 0.6, Gamma Glutamyl Transpeptidase 15, Aspartate Amino Transf (AST/SGOT) 19, Alanine Aminotransferase (ALT/SGPT) 26, Alkaline Phosphatase 49, Total Creatine Kinase 61, C-Reactive Protein, Quantitative 7.0H, Total Protein 5.7L, Albumin 3.5, Globulin 2.2, Albumin/Globulin Ratio 1.5, Triglycerides Level 64, Cholesterol Level 127, LDL Cholesterol 51L, HDL Cholesterol 63H, Cholesterol/HDL Ratio 2.0L , Vitamin B12 Level 692, Folate [Pending], Thyroid Stimulating Hormone (TSH) 0.348 HUNTER CASTRO Oct 25, 2016 19:09
--- NOTE | 2016-10-26 08:11 | Discharge Summary ---
Discharge Summary Hospital Course Date of Admission Oct 22, 2016 at 22:31 Date of Discharge Oct 25, 2016 at 18:15 Admitting Diagnosis OBSTRUCTIVE KIDNEY STONE HPI Jesus Bashir is a 51 year old male who was admitted on Oct 22, 2016 at 22: 31 for Obstructive Kidney Stone Hospital Course [id number] Discharge Discharge Disposition Patient was discharged to Home (01) Discharge Diagnoses: Sandra Farias NP Oct 26, 2016 08:11
--- NOTE | 2016-10-26 16:15 | Discharge Summary 2 SIG ---
DATE OF ADMISSION: 10/22/2016 DATE OF DISCHARGE: 10/25/2016 CONSULTANTS: 1. Antwon Harris M.D. 2. Barak Garsia M.D. BRIEF HOSPITAL COURSE: The patient is a 51-year-old male, who presented to ED complaining of abdominal pain and flank pain. The patient does not have any medical history. On evaluation at ED, creatinine was elevated to 1.8. CAT scan showed a 5 to 6 mm stone on the right proximal ureter with mild obstructive changes. He was admitted to medical floor due to renal failure and kidney stone. He was started on IV hydration and was given ciprofloxacin. He was not able to pass the stone and symptoms were not improving. On 10/24/2016, he underwent retrograde intrarenal surgery with ESWL and stent placement on the right ureter. He was continued on IV fluids and renal function was monitored. Creatinine eventually normalized. The patient had acute renal failure secondary to right ureteral obstruction, now resolved. He was eventually discharged home to continue antibiotics. FINAL DIAGNOSES: 1. Acute right ureteral obstruction status post stent placement. 2. Acute renal failure. 3. Ureteral stone with hydronephrosis. 4. Migraines. DISPOSITION: The patient was discharged home. DISCHARGE MEDICATIONS: Refer to medication list. FOLLOWUP: The patient was advised to follow up with Dr. Harris. ACTIVITY: As tolerated. Yaya Braun M.D. I have been assigned to dictate discharge summary on this account and I was not involved in the patient's management. Sandra Farias N.P. DR: ZEE JOB#: [id number] CC: STEPHEN
--- NOTE | 2016-10-30 07:15 | Operative Note - Dictated ---
DATE OF OPERATION: 10/24/2016 PREOPERATIVE DIAGNOSIS: Right ureteropelvic junction stone. POSTOPERATIVE DIAGNOSIS: Right ureteropelvic junction stone. OPERATION: 1. Cystoscopy. 2. Retrograde pyelogram. 3. Retrograde intrarenal surgery with rigid and flexible ureteroscopy. 4. Extracorporeal shock wave lithotripsy of the 6 mm stone in the right kidney. 5. Double J-stent placement. SURGEON: Antwon Harris M.D. ANESTHESIA: General. FINDINGS: Obstructive right UPJ stone. INDICATIONS FOR SURGERY: The patient presented to the hospital through ER with obstructing stone and pain. He was placed on IV fluids, IV antibiotics, and pain medications, but still had not passed the stone. Considering slight elevation of creatinine and options, decision was made to proceed with surgery. The patient understands the nature of the procedure and all potential complications and signed the consent. I discussed with this case with him and his . The patient was brought to the operating room, placed in lithotomy position, prepped and draped in standard fashion. Under general anesthesia, cystoscope was introduced into the bladder and right ureter was cannulated. Guidewire was placed into the right kidney. Semi-rigid ureteroscope was introduced into the ureter. Stone was found in the upper ureter and pushed up into the kidney. Flexible ureteroscope was then introduced over the guidewire and stone was localized in the mid fabiano of the right kidney. Using extracorporeal shockwave lithotripsy with 9 kilovolts and 90 shocks per minute, stone was fragmented into small pieces. After that, a double J-stent was placed and left indwelling in the ureter. A Goodrich catheter was also left indwelling. The patient tolerated the procedure well. No evidence of complications. No evidence of bleeding. The patient tolerated the procedure well. Sponge count and instrument count was correct. Antwon Harris M.D. DR: ALEX/Sherri JOB#: [id number] CC [email or web address]
--- NOTE | 2016-10-30 07:15 | Operative Note - Dictated ---
ADDENDUM Semi-rigid ureteroscope was introduced into the ureter. Stone was found in the upper ureter and pushed up into the kidney. Flexible ureteroscope was then introduced over the guidewire and stone was localized in the mid fabiano of the right kidney. Using extracorporeal shockwave lithotripsy with 9 kilovolts and 90 shocks per minute, stone was fragmented into small pieces. After that, a double J-stent was placed, 00:35, and left indwelling in the ureter. A Goodrich catheter was also left indwelling. The patient tolerated the procedure well. No evidence of complications. No evidence of bleeding. The patient tolerated the procedure well. Sponge count and instrument count was correct. Antwon Harris M.D. DR: Brook JOB#: [id number] CC:
== END 2016-10-25 18:15 | disposition home or self-care (01) | DRG 669 ==
LOC: EMR 21:53 → EDBEDREQ 22:14 → 4W 22:31
PROC: 0TF3XZZ Fragmentation in Right Kidney Pelvis, External Approach (ICD-10-PCS; principal; 2016-10-24 10:45)
PROC: 0T768DZ Dilation of Right Ureter with Intraluminal Device, Via Natural or Artificial Opening Endoscopic (ICD-10-PCS; principal; 2016-10-24 10:45)
PROC: 0TC68ZZ Extirpation of Matter from Right Ureter, Via Natural or Artificial Opening Endoscopic (ICD-10-PCS; principal; 2016-10-24 10:45)
PROC: BT1DZZZ Fluoroscopy of Right Kidney, Ureter and Bladder (ICD-10-PCS; principal; 2016-10-24 10:45)
DX: N13.2 Hydronephrosis with renal and ureteral calculous obstruction (principal); N17.9 Acute kidney failure, unspecified; Z88.0 Allergy status to penicillin; I10 Essential (primary) hypertension; E78.00 Pure hypercholesterolemia, unspecified
CPT/HCPCS: 36415; 80048; 80053; 80061; 81001; 82150; 82550; 82607; 82746; 82977; 83036; 83690; 83735; 84100; 84133; 84300; 84443; 84550; 85007; 85025; 85651; 85730; 86140; 87086; 89050; 99285; J2180; J2250; J2405